=== PATIENT | male | born 1985 ===

== ENCOUNTER 2024-08-30 04:19 | Day surgery (SDC) | payer OTHER ==
[~2024-08-30] VITALS: Ht 180.3 cm; Wt 83.9 kg
[2024-08-30] VITALS (216 sets, daily range): BP systolic 86–151; BP diastolic 37–93
[2024-08-30] MEDS ORDERED: ALBUTEROL SULFATE 2.5 MG VIAL IN PRN (07:30)
[2024-08-30] MEDS ORDERED: LACTATED RINGER'S 1,000 ML IV PRN ×3 (07:30→19:00)
[2024-08-30] MEDS ORDERED: FAMOTIDINE 20 MG/TAB PO PRN (07:30)
[2024-08-30] MEDS ORDERED: cloNIDine HCL 0.1 MG/TAB PO PRN (07:30)
[2024-08-30] MEDS ORDERED: PANTOPRAZOLE SODIUM Sesquihydr 40 MG/TAB PO PRN (07:30)
[2024-08-30] MEDS ORDERED: diazePAM 5 MG/TAB PO PRN ×2 (07:30→08:30)
[2024-08-30] MEDS ORDERED: CYANOCOBALAMIN 500 MCG/TAB ( B12) PO PRN (07:30)
[2024-08-30] MEDS ORDERED: SCOPOLAMINE 1.5 MG DIS TD PRN (07:30)
[2024-08-30] MEDS ORDERED: ASCORBIC ACID 4,000 MG in SODIUM CHLORIDE 0.9% 1,000 ML IV SCH (08:00)
[2024-08-30 09:00] LABS: BASO% 0.5 % (0-3); EOS% 2.6 % (0-8); HEMATOCRIT 41.7 % (39.0-50.0); HEMOGLOBIN 14.5 g/dl (14.0-18.0); IMMATURE GRANULOCYTES 0.2 % (0.0-5.0); LYMPH% 32.3 % (15-41); MEAN CELL VOLUME 93.7 fL CALC (80.0-100.0); MEAN CORPUSCULAR HGB 32.6 pG CALC (26.0-32.0); MEAN CORPUSCULAR HGB CONC 34.8 g/dL CAL (32.0-36.0); MONO% 7.4 % (2-13); NEUT# 2.4 thou/uL (1.82-7.42); RED BLOOD COUNT 4.45 mill/uL (4.70-6.10); RED CELL DISTRI WIDTH 12.5 % (11.5-15.5)
[2024-08-30] MEDS ORDERED: STERILE WATER FOR IRRIGATION 1,000 ML BTL IR PRN (09:50)
[2024-08-30] MEDS ORDERED: SUCCINYLCHOLINE CHLORIDE 20 MG/ML 10ML VIAL IV PRN (09:50)
[2024-08-30] MEDS ORDERED: diazePAM 5 MG/TAB VT PRN (09:50)
[2024-08-30] MEDS ORDERED: OCTREOTIDE ACETATE 100 MCG/VIAL SDV SC PRN (09:50)
[2024-08-30] MEDS ORDERED: LIDOCAINE HCL 1% (10MG/ML) 100 MG/10 ML MDV VT PRN ×2 (09:50)
[2024-08-30] MEDS ORDERED: MAGNESIUM SULFATE HEPTAHYDRATE 100 ML IV PRN (09:50)
[2024-08-30] MEDS ORDERED: cloNIDine HYDROCHLORIDE 100 MCG/ML 10 ML INJ IV PRN (09:50)
[2024-08-30] MEDS ORDERED: ROCURONIUM BROMIDE 10 MG/ML 5ML VIAL IV PRN (09:50)
[2024-08-30] MEDS ORDERED: NALTREXONE HCL 50 MG/TAB VT PRN (09:50)
[2024-08-30] MEDS ORDERED: ONDANSETRON HCl 4 MG/2 ML SDV IV PRN ×3 (09:50→19:00)
[2024-08-30] MEDS ORDERED: PROPOFOL 100 ML IV PRN (09:50)
[2024-08-30] MEDS ORDERED: MIDAZOLAM HCL 2 MG/2 ML VIAL IV PRN (09:50)
[2024-08-30] MEDS ORDERED: LIDOCAINE HCL 1% (10MG/ML) 100 MG/10 ML MDV IV PRN (09:50)
[2024-08-30] MEDS ORDERED: cloNIDine HCL 0.1 MG/TAB VT PRN (09:50)
[2024-08-30] MEDS ORDERED: DiphenhydrAMINE HCL 50 MG/ML SDV IV PRN (09:50)
[2024-08-30] MEDS ORDERED: PROPOFOL 10 MG/ML 100ML VIAL IV PRN (09:50)
[2024-08-30] MEDS ORDERED: THIAMINE HCL 100 MG/ML 2ML VIAL IV PRN (09:50)
[2024-08-30 09:56] LABS: ALBUMIN 3.7 g/dL (3.2-5.0); BILIRUBIN, TOTAL 0.4 mg/dL (0.2-1.3); POTASSIUM 4.1 mmol/l (3.5-5.1); TOTAL PROTEIN 6.1 g/dL (6.3-8.2)
[2024-08-30] MEDS ORDERED: KLONOPIN1 MG PO (10:07)
[2024-08-30] MEDS ORDERED: POTASSIUM CHLORIDE 10 MEQ/50 ML BAG IV PRN (10:10)
[2024-08-30] MEDS ORDERED: PHENYLEPHRINE HCL 10 MG/ML VIAL ONE (10:18)
[2024-08-30] MEDS ORDERED: NALTREXONE50 MG PO (15:48)
[2024-08-30] MEDS ORDERED: CLONIDINE0.1 MG PO (15:48)
[2024-08-30] MEDS ORDERED: PROMETHAZINE HCL 25 MG in SODIUM CHLORIDE 0.9% 50 ML IV PRN (19:00)
[2024-08-30] MEDS ORDERED: ACETAMINOPHEN 500 MG TAB PO PRN (19:00)
[2024-08-30] MEDS ORDERED: PROMETHAZINE HCL 12.5 MG in SODIUM CHLORIDE 0.9% 50 ML IV PRN (19:00)
[2024-08-30] MEDS ORDERED: ACETAMINOPHEN 1,000 MG/100 ML VIAL IV PRN (19:00)
[2024-08-30] MEDS ORDERED: LORazepam 2 MG/ML IV PRN ×2 (19:00)
[2024-08-30] MEDS ORDERED: KETOROLAC TROMETHAMINE 30 MG/ML SDV IV PRN (19:00)
[2024-08-30] MEDS ORDERED: HALOPERIDOL LACTATE 5 MG/ML SDV IV PRN (19:00)
[2024-08-30] MEDS ORDERED: PATIENT' OWN MED CONTROLLED 1 EA DOSE IV PRN (21:00)
[2024-08-30] MEDS ORDERED: clonazePAM 1 MG/TAB PO PRN (23:00)
[2024-08-30] MEDS ORDERED: cloNIDine HCL 0.1 MG/TAB PO SCH (23:00)
[2024-08-31] MEDS ORDERED: HALOPERIDOL LACTATE 5 MG/ML SDV IV SCH (01:00)
[2024-08-31] MEDS ORDERED: cloNIDine HCL 0.1 MG/TAB PO PRN (04:00)
[2024-08-31] MEDS ORDERED: clonazePAM 1 MG/TAB PO PRN ×2 (04:00→08:00)
[2024-08-31] MEDS ORDERED: NALTREXONE HCL 50 MG/TAB PO SCH (04:00)
[2024-08-31 04:10] VITALS: BP 93/49
[2024-08-31 04:13] VITALS: BP 92/51
[2024-08-31 06:20] LABS: BASO% 0.1 % (0-3); HEMATOCRIT 41.2 % (39.0-50.0); HEMOGLOBIN 14.5 g/dl (14.0-18.0); IMMATURE GRANULOCYTES 0.1 % (0.0-5.0); LYMPH% 10.3 % (15-41); MEAN CELL VOLUME 92.6 fL CALC (80.0-100.0); MEAN CORPUSCULAR HGB 32.6 pG CALC (26.0-32.0); MEAN CORPUSCULAR HGB CONC 35.2 g/dL CAL (32.0-36.0); MONO% 4.5 % (2-13); NEUT# 7.35 thou/uL (1.82-7.42); RED BLOOD COUNT 4.45 mill/uL (4.70-6.10); RED CELL DISTRI WIDTH 12.3 % (11.5-15.5)
[2024-08-31 06:36] LABS: ALBUMIN 3.9 g/dL (3.2-5.0); CREATININE 0.9 mg/dL (0.7-1.3); MAGNESIUM 1.9 mg/dL (1.6-2.3); POTASSIUM 4.2 mmol/l (3.5-5.1); TOTAL PROTEIN 6.2 g/dL (6.3-8.2)
[2024-08-31 07:00] LABS: BILIRUBIN, TOTAL 0.8 mg/dL (0.2-1.3)
[2024-08-31] MEDS ORDERED: PANTOPRAZOLE SODIUM Sesquihydr 40 MG/TAB PO SCH (08:00)
[2024-08-31] MEDS ORDERED: ACETAMINOPHEN 325 MG/TAB PO SCH (08:00)
[2024-08-31] MEDS ORDERED: cloNIDine HCL 0.1 MG/TAB PO SCH (08:00)
[2024-08-31 08:07] VITALS: BP 105/58
[2024-08-31] MEDS ORDERED: Cholecalciferol 2,000 UNIT/TAB PO PRN (09:00)
[2024-08-31] MEDS ORDERED: MAGNESIUM OXIDE 400 MG/TAB PO PRN (09:00)
[2024-08-31] MEDS ORDERED: ACETAMINOPHEN 500 MG TAB PO PRN (09:00)
[2024-08-31] MEDS ORDERED: MAGNESIUM OXIDE 400 MG/TAB PO SCH (10:30)
[2024-08-31] MEDS ORDERED: MAGNESIUM SULFATE HEPTAHYDRATE 50 ML IV SCH (13:00)
== END 2024-08-31 14:18 | disposition home or self-care (01) | DRG 897 ==
LOC: ANR 04:19 → MS2 04:20 → ANR 08:00 → MS2 16:30 → ANR 08-31 14:18
PROVIDERS: ATTEND Anesthesiology
DX: F11.20 Opioid dependence, uncomplicated (principal)
CPT/HCPCS: J1100; J1200; J1630; J2060; J2354; J2405; J2704; J3411; J3475